=== PATIENT | female | born 1950 | race Caucasian/White ===

== ENCOUNTER 2017-01-09 11:03 | Emergency (ER) | payer OTHER ==
[~2017-01-09] VITALS: Ht 162.6 cm; Wt 89.0 kg
[~2017-01-09 11:03] MED LIST: ATOR40TA68 PO; LANT3I SC; LEVO50TA74 PO; LISI10TA2 PO; TRAM-40 PO
[2017-01-09 11:06] VITALS: Ht 162.6 cm; Wt 89.0 kg
[2017-01-09] MEDS ORDERED: ONDANSETRON 4 MG INJ IV STA (11:26)
[2017-01-09] MEDS ORDERED: morphine 4 MG/ML VIAL IV STA (11:26)
[2017-01-09 12:21] LABS: ADD SCAN DIFF NO
[2017-01-09 12:27] LABS: ADD UMIC NO; URINE BILIRUBIN (Dip) NEGATIVE (NEGATIVE); URINE BLOOD (Dip) NEGATIVE (NEGATIVE); URINE COLOR LT. YELLOW (YELLOW); URINE GLUCOSE (Dip) NEGATIVE (NEGATIVE); URINE KETONES (Dip) NEGATIVE (NEGATIVE); URINE LEUKOCYTE ESTERASE (Dip) NEGATIVE (NEGATIVE); URINE NITRITE (Dip) NEGATIVE (NEGATIVE); URINE TOTAL PROTEIN (Dip) NEGATIVE (NEGATIVE); URINE UROBILINOGEN (Dip) 0.2 E.U./dL (0.1-1.0)
[2017-01-09 12:45] LABS: ALBUMIN 4.7 g/dl (3.3-4.9); ALBUMIN/GLOBULIN RATIO 1.04; CALCIUM 10.6 mg/dl (8.4-10.2); CREATININE 1.3 mg/dl (0.44-1.00); TOTAL PROTEIN 9.2 g/dl (6.1-8.1)
[2017-01-09 12:50] LABS: BASOPHIL # 0.1 10^3/ul (0.0-0.1); BASOPHILS % 0.8 % (0.0-2.0); EOSINOPHILS # 0.4 10^3/ul (0.0-0.5); EOSINOPHILS % 4.3 % (0.0-7.0); HEMOGLOBIN 11.6 g/dl (12.0-16.0); LYMPHOCYTES # 1.9 10^3/ul (0.8-2.9); LYMPHOCYTES % 21.8 % (15.0-51.0); MEAN CORPUSCULAR HEMOGLOBIN 27.9 pg (29.0-33.0); MEAN CORPUSCULAR HGB CONC 30.5 g/dl (32.0-37.0); MEAN CORPUSCULAR VOLUME 91.3 fl (82.0-101.0); MEAN PLATELET VOLUME 10.6 fl (7.4-10.4); MONOCYTE # 0.5 10^3/ul (0.3-0.9); MONOCYTES % 5.5 % (0.0-11.0); NEUTROPHIL # 5.9 10^3/ul (1.6-7.5); NEUTROPHILS % 67.4 % (39.0-77.0); PLATELET COUNT 322 10^3/UL (140-415); RED BLOOD COUNT 4.16 10^6/ul (4.20-5.40); RED CELL DISTRIBUTION WIDTH 13.5 % (11.5-14.5); WHITE BLOOD COUNT 8.8 10^3/ul (4.8-10.8)
--- NOTE | 2017-01-09 12:58 | RADRPT ---
PROCEDURE: CT Abdomen and Pelvis without contrast. CLINICAL INDICATION: Constipation, pain TECHNIQUE: CT of the abdomen and pelvis was performed on a multi-detector scanner without IV contr ast. Coronal and sagittal images were reformatted from the axial data set. One or more of the foll owing dose reduction techniques were used: automated exposure control, adjustment of the mA and/or kV according to patient size, use of iterative reconstruction technique. CTDI = 22.2 mGy. DLP = 134 1.89 mGy-cm. COMPARISON: None. FINDINGS: CT abdomen: The lung bases are clear. The heart size is normal, without pericardial effusion. Coronary arteria l calcifications are noted. Cholelithiasis is seen without evidence for cholecystitis. Liver, bili lisandra tree, pancreas, spleen, right adrenal gland and bilateral kidneys are unremarkable. No urolithi asis or obstructive uropathy is identified. Left adrenal gland demonstrates a 15 mm benign adenoma. The stomach is grossly unremarkable. The aorta is of normal caliber. Aortic vascular calcifications are present. There is no retroperit duque lymphadenopathy. The leo hepatis region is clear. Fat-containing umbilical hernia is noted . CT pelvis: No bowel obstruction, free intraperitoneal air or abscess is identified. Moderate retained fecal ma terial is suggestive of constipation. There is no diverticulosis, diverticulitis or colitis. The a ppendix is well visualized and normal. Urinary bladder, uterus and adnexa are grossly unremarkable. Asymmetrically prominent right inguinal and iliac lymph nodes are identified, possibly reactive. No pelvic mass or lymphadenopathy is identified. The surrounding osseous structures are remarkable for degenerative spondylosis of the spine. No ost eolytic or osteoblastic lesion is detected. IMPRESSION: 1. Coronary arterial and aortoiliac atherosclerotic calcifications are present. 2. Cholelithiasis is seen without evidence for cholecystitis. 3. Fat-containing umbilical hernia is noted, without incarceration. 4. Moderate retained fecal material is suggestive of constipation. 5. There is asymmetric prominence of right iliac and inguinal lymph nodes, all of which demonstrate normal fatty sven, and are more likely reactive in nature, though further evaluation should be cons idered if the patient has a history of neoplasm. RPTAT: .Giovanni Art MD, Date Time Electronically viewed and signed by .Giovanni Art MD, on 01/09/2017 12:58 .R/
[2017-01-09] MEDS ORDERED: DOCU-144 PO (13:23)
[2017-01-09] MEDS ORDERED: HYDR25SU23 PR (13:23)
--- NOTE | 2017-01-09 14:23 | ERD ---
ER Documentation Chief Complaint Date/Time DATE: 01/09/17 TIME: 14:21 Chief Complaint AP, WITH CONSTIPATIN AND RECTAL PAIN, HPI Patient is a 66-year-old female with hypertension, diabetes, gastritis, and high cholesterol who presents with "pain in rectum". The patient is having pain with bowel movements. The pain was worse today. The symptoms started 2 weeks ago. There are no fevers. The patient tried hemorrhoid cream. Last night she had a normal bowel movement but there was blood mixed with the bowel movement. Upon review of old medical records this is the patient's third visit to the ER since 2008. Her primary doctor is Dr. Escoto and she has an appointment scheduled for Sunday. ROS All systems reviewed and are negative except as per history of present illness. Medications Home Meds Active Scripts Docusate Sodium* (Colace*) 100 Mg Capsule, 100 MG PO TID, #30 CAP Prov:RONAL SPENCE MD 01/09/17 Hydrocortisone Acetate (Anusol-Hc) 25 Mg Supp.rect, 1 SUPP ME BID Y for HEMORROID PAIN/ITCHING, #12 SUPP.RECT Prov:RONAL SPNECE MD 01/09/17 Reported Medications Insulin Glargine* (Lantus*) 100 Unit/Ml Soln, 10 UNIT SC BID, EA 06/18/15 Tramadol Hcl* (Ultram*) 50 Mg Tablet, 50 MG PO DAILY for PAIN, TAB 06/18/15 Lisinopril* (Lisinopril*) 10 Mg Tablet, 10 MG PO DAILY, TAB 06/18/15 Atorvastatin* (Atorvastatin*) 40 Mg Tablet, 40 MG PO HS, TAB 06/18/15 Levothyroxine Sodium* (Levothyroxine Sodium*) 50 Mcg Tablet, 50 MCG PO AC BREAKFAST, TAB 06/18/15 Allergies Allergies: Coded Allergies: No Known Allergy (Unverified , 07/26/15) PMhx/Soc Medical and Surgical Hx: pt denies Medical Hx, pt denies Surgical Hx History of Surgery: Yes (right ankle, foot surgery) Anesthesia Reaction: No Hx Neurological Disorder: Yes (diabetic neuropathy) Hx Respiratory Disorders: Yes Hx Cardiac Disorders: Yes (htn) Hx Psychiatric Problems: No Hx Miscellaneous Medical Probl: Yes (diabetes, thyroid disease) Hx Alcohol Use: No Hx Substance Use: No Hx Tobacco Use: No Smoking Status: Current every day smoker Fmx Family History: No diabetes Physical Exam Vitals Vital Signs Date Time Temp Pulse Resp B/P Pulse Ox O2 Delivery O2 Flow Rate FiO2 01/09/17 11:06 97.8 81 18 130/66 99 Physical Exam Const: Moderate distress secondary to pain Head: Atraumatic Eyes: Normal Conjunctiva ENT: Normal External Ears, Nose and Mouth. Neck: Full range of motion..~ No meningismus. Resp: Clear to auscultation bilaterally Cardio: Regular rate and rhythm, no murmurs Abd: Soft, non tender, non distended. Normal bowel sounds Skin: No petechiae or rashes Back: No midline or flank tenderness Ext: No cyanosis, or edema Neur: Awake and alert Rectal: External hemorrhoids with no active bleeding, no sign of infection Result Diagram: 01/09/17 1207 01/09/17 1207 Results 24 hrs Laboratory Tests Test 01/09/17 11:25 01/09/17 12:00 01/09/17 12:07 Stool Occult Blood NEGATIVE Urine Color LT. YELLOW Urine Clarity CLEAR Urine pH 5.5 Urine Specific [place] 1.020 Urine Ketones NEGATIVE Urine Nitrite NEGATIVE Urine Bilirubin NEGATIVE Urine Urobilinogen 0.2 E.U./dL Urine Leukocyte Esterase NEGATIVE Urine Hemoglobin NEGATIVE Urine Glucose NEGATIVE% Urine Total Protein NEGATIVE White Blood Count 8.810^3/ul Red Blood Count 4.1610^6/ul Hemoglobin 11.6g/dl Hematocrit 38.0% Mean Corpuscular Volume 91.3fl Mean Corpuscular Hemoglobin 27.9pg Mean Corpuscular Hemoglobin Concent 30.5g/dl Red Cell Distribution Width 13.5% Platelet Count 58859^3/UL Mean Platelet Volume 10.6fl Neutrophils % 67.4% Lymphocytes % 21.8% Monocytes % 5.5% Eosinophils % 4.3% Basophils % 0.8% Nucleated Red Blood Cells % 0.0/100WBC Neutrophils # 5.910^3/ul Lymphocytes # 1.910^3/ul Monocytes # 0.510^3/ul Eosinophils # 0.410^3/ul Basophils # 0.110^3/ul Nucleated Red Blood Cells # 0.010^3/ul Sodium Level 144mmol/L Potassium Level 5.0mmol/L Chloride Level 110mmol/L Carbon Dioxide Level 24mmol/L Anion Gap 15 Blood Urea Nitrogen 41mg/dl Creatinine 1.30mg/dl Glucose Level 155mg/dl Calcium Level 10.6mg/dl Total Bilirubin 0.0mg/dl Direct Bilirubin 0.00mg/dl Indirect Bilirubin 0.0mg/dl Aspartate Amino Transf (AST/SGOT) 17IU/L Alanine Aminotransferase (ALT/SGPT) 22IU/L Alkaline Phosphatase 132IU/L Total Protein 9.2g/dl Albumin 4.7g/dl Globulin 4.50g/dl Albumin/Globulin Ratio 1.04 Lipase 61U/L Current Medications Medications (Trade) Dose Ordered Sig/Babak Route PRN Reason Start Time Stop Time Status Last Admin Dose Admin Morphine Sulfate (morphine) 4 mg ONCE STAT IV 01/09/17 11:26 01/09/17 11:27 DC 01/09/17 12:06 Ondansetron HCl (Zofran Inj) 4 mg ONCE STAT IV 01/09/17 11:26 01/09/17 11:27 DC 01/09/17 12:06 Procedures/MDM Smoking Cessation Therapy: Pt. was lectured for greater than 3 minutes on the health risks of continued smoking and the benefits of cessation. CT scan shows acute constipation per radiology. Patient is a 66-year-old female who presents with rectal pain. There are hemorrhoids but no active bleeding and no signs of thrombosis. There is no sign of perirectal abscess. At this point I believe outpatient management is appropriate. The patient will be discharged home with a prescription for Anusol suppository and Colace for stool softening. I doubt appendicitis, cholecystitis, pancreatitis, or bowel obstruction. The patient should follow- up with the primary doctor within 24-48 hours for reevaluation. Departure Diagnosis: Primary Impression: Constipation Constipation type: unspecified constipation type Qualified Code: K59.00 - Constipation, unspecified constipation type Additional Impressions: Abdominal pain Abdominal location: left lower quadrant Qualified Code: R10.32 - Left lower quadrant pain Hemorrhoids Hemorrhoid type: unspecified Qualified Code: K64.9 - Hemorrhoids, unspecified hemorrhoid type Rectal pain Condition: Fair Patient Instructions: Abdominal Pain, Treating Constipation Additional Instructions: Visite a guth[facility] janice franks para un EXAMEN.Regrese a estas instalaciones si no se mejora nan esperbamos o nan le dijimos. OSTICK,RONAL MD Jan 09, 2017 14:23
== END 2017-01-09 13:39 | disposition home or self-care (01) ==
LOC: E/R 11:03
DX: K59.00 Constipation, unspecified (principal); R10.32 Left lower quadrant pain; K64.9 Unspecified hemorrhoids; K62.89 Other specified diseases of anus and rectum; I10 Essential (primary) hypertension; E11.9 Type 2 diabetes mellitus without complications; F17.210 Nicotine dependence, cigarettes, uncomplicated; Z79.4 Long term (current) use of insulin
CPT/HCPCS: 36415; 74176; 80053; 81003; 82270; 83690; 85025; 96374; 96375; J2270; J2405; Z7502